=== PATIENT | male | born 1990 | race Caucasian/White ===

== ENCOUNTER → 2020-11-03 | Outpatient (REF) ==
[~2020-11-03] MED LIST: AMOXICILLIN 8751 TAB PO; CLEOCIN HCL300 MG PO; MUCINEX 60600 MG/TA1 PO; NO HOME MEDICATIONS; NORCO 325 MG-51 TAB PO; PERCOCET 325 MG1 TA2 PO; TYLENOL 500MG500 MG PO
== END ==
LOC: COL.LAB 21:42 → COL.EMP 21:42
DX: U07.1 COVID-19 (principal)

== ENCOUNTER 2020-12-01 11:05 | Emergency (ER) | payer OTHER ==
[~2020-12-01] VITALS: Ht 177.8 cm; Wt 111.4 kg
[2020-12-01 11:18] VITALS: TEMP 98.5
[2020-12-01 12:09] LABS: BASO % 0.5 % (0.0-2.0); EOS # 0.5 (0.0-0.7); EOS % 5.7 % (0-4.0); GRAN # 4.7 (1.4-6.5); GRAN % 56.3 % (42.2-75.2); HEMATOCRIT 46.5 % (42.0-52.0); HEMOGLOBIN 15.8 g/dl (13.5-18.0); LYMPH # 2.4 (1.2-3.4); LYMPH % 28.6 % (20.0-51.0); MEAN CELL VOLUME 87 fl (80.0-100.0); MEAN CORPUSCULAR HEMOGLOBIN 29 pg (27.0-31.0); MEAN CORPUSCULAR HGB CONC 34 g/dl (33.0-37.0); MONO # 0.7 (0.1-0.6); MONO % 8.1 % (1.7-9.3); PLATELET COUNT 267 K/mm3 (130-400); RED BLOOD COUNT 5.37 M/mm3 (4.20-5.60); REDCELL DISTRIBUTION WIDTH-CV 13.3 % (11.5-14.5)
[2020-12-01 12:15] LABS: ALBUMIN 4.2 gm/dL (3.5-5.0); BILIRUBIN,TOTAL 0.8 mg/dL (0.0-1.0); CALCIUM 9.3 mg/dL (8.4-10.2); CREATININE, serum 0.89 (0.66-1.25); POTASSIUM 4.1 mmol/L (3.4-5.0); TOTAL PROTEIN 7.6 gm/dL (6.4-8.2)
[2020-12-01 12:28] LABS: TROPONIN-I 0.013 ng/mL (0.000-0.035)
[2020-12-01 13:38] VITALS: BP 129/73; PULSE 71
== END 2020-12-01 13:40 | disposition home or self-care (01) ==
LOC: COL.ER 11:05
PROVIDERS: Emergency Medicine
DX: R53.81 Other malaise (principal); R53.83 Other fatigue; Z86.16 Personal history of COVID-19